=== PATIENT | male | born 1985 | race African-American/Black ===

== ENCOUNTER 2017-08-14 16:30 | Emergency (ER) | payer SELFPAY ==
[~2017-08-14] VITALS: Ht 188 cm; Wt 111.0 kg
[~2017-08-14 16:30] MED LIST: DICL50TA2 PO
[2017-08-14 16:36] VITALS: BP 148/66; PULSE 62; RESP 14; TEMP 98.1; O2SAT 100
--- NOTE | 2017-08-14 17:24 | PD ---
HPI Chief Complaint: Chest Pain Time Seen by Provider: 17:08 Travel History International Travel<30 days: No Contact w/Intl Traveler<30days: No Traveled to known affect area: No History of Present Illness HPI 31yo M with no PMH presents to the ED with c/o left sided chest pain for 3 days. Pain is nonradiating and intermittent. Associated with some sob. Denies any fever, cough, hemoptysis, diaphoresis, nausea, vomiting, abdominal pain, focal weakness or numbness. Pt was playing basketball a few days ago. Pt was here in 2011 for atypical chest pain. Pt said he has no access to his family history. Denies any cig smoking, cocaine use, drug use, leg swelling, recent surgery, DVT/PE. PFSH Past Medical History Asthma: Yes (as a child) Past Surgical History Other Surgery: Yes (lymph node removed from right neck) Social History Alcohol Use: Yes (1glass of wine daily) Tobacco Use: No Substance Use: No Allergies-Medications (Allergen,Severity, Reaction): Coded Allergies: No Known Allergies (Unverified Adverse Reaction, Unknown, 08/14/17) Reported Meds & Prescriptions Reported Meds & Active Scripts Active No Active Prescriptions or Reported Medications Review of Systems Except as stated in HPI: all other systems reviewed are Neg Physical Exam Narrative GENERAL: 31yo M not in distress. SKIN: Focused skin assessment warm/dry. HEAD: Atraumatic. Normocephalic. EYES: Pupils equal and round. No scleral icterus. No injection or drainage. ENT: No nasal bleeding or discharge. Mucous membranes pink and moist. NECK: Trachea midline. No JVD. CARDIOVASCULAR: Regular rate and rhythm. No murmur appreciated. RESPIRATORY: No accessory muscle use. Clear to auscultation. Breath sounds equal bilaterally. GASTROINTESTINAL: Abdomen soft, non-tender, nondistended. MUSCULOSKELETAL: No obvious deformities. No clubbing. No cyanosis. No edema. NEUROLOGICAL: Awake and alert. No obvious cranial nerve deficits. Motor grossly within normal limits. Normal speech. PSYCHIATRIC: Appropriate mood and affect; insight and judgment normal. Data Data Last Documented VS Vital Signs Date Time Temp Pulse Resp B/P (MAP) Pulse Ox O2 Delivery O2 Flow Rate FiO2 08/14/17 16:36 98.1 62 14 148/66 (93) 100 Orders Orders Electrocardiogram (6/25/18 17:17) Basic Metabolic Panel (Bmp) (08/14/17 17:17) Complete Blood Count With Diff (08/14/17 17:17) Prothrombin Time / Inr (Pt) (08/14/17 17:17) Act Partial Throm Time (Ptt) (08/14/17 17:17) Troponin I (08/14/17 17:17) Chest, Single Ap (08/14/17 17:17) Ketorolac Inj (Toradol Inj) (08/14/17 17:30) Labs Laboratory Tests Test 08/14/17 17:20 White Blood Count 6.5 TH/MM3 Red Blood Count 5.92 MIL/MM3 Hemoglobin 15.5 GM/DL Hematocrit 46.7 % Mean Corpuscular Volume 78.9 FL Mean Corpuscular Hemoglobin 26.3 PG Mean Corpuscular Hemoglobin Concent 33.3 % Red Cell Distribution Width 15.4 % Platelet Count 170 TH/MM3 Mean Platelet Volume 9.4 FL Neutrophils (%) (Auto) 61.5 % Lymphocytes (%) (Auto) 28.3 % Monocytes (%) (Auto) 8.4 % Eosinophils (%) (Auto) 1.4 % Basophils (%) (Auto) 0.4 % Neutrophils # (Auto) 4.0 TH/MM3 Lymphocytes # (Auto) 1.8 TH/MM3 Monocytes # (Auto) 0.5 TH/MM3 Eosinophils # (Auto) 0.1 TH/MM3 Basophils # (Auto) 0.0 TH/MM3 CBC Comment DIFF FINAL Differential Comment Prothrombin Time 10.7 SEC Prothromb Time International Ratio 1.1 RATIO Activated Partial Thromboplast Time 26.0 SEC Blood Urea Nitrogen 13 MG/DL Creatinine 1.21 MG/DL Random Glucose 92 MG/DL Calcium Level 9.0 MG/DL Sodium Level 141 MEQ/L Potassium Level 3.5 MEQ/L Chloride Level 106 MEQ/L Carbon Dioxide Level 27.2 MEQ/L Anion Gap 8 MEQ/L Estimat Glomerular Filtration Rate 86 ML/MIN Troponin I LESS THAN 0.02 NG/ML [facility] Medical Decision Making Medical Screen Exam Complete: Yes Emergency Medical Condition: Yes Interpretation(s) EKG: NSR 72bpm. Normal axi.s TWI III. No significant ST elevation or depression. Differential Diagnosis Musculoskeletal pain vs. pneumonia vs. pneumothorax vs. costochondritis vs. ACS Narrative Course 31yo M with atypical left chest pain for 3 days. Labs reviewed, no leukocytosis. H/H normal. Troponin negative. BMP unremarkable. CXR showed minimal left base parenchymal opacity and that is where his pain is. Pt is well appearing and saturating at 100% on RA so will cover with azithromycin. Do not think this is cardiac. Pt given toradol and pain has improved. Return precautions given. Diagnosis Primary Impression: Pneumonia Qualified Codes: J18.1 - Lobar pneumonia, unspecified organism Patient Instructions: General Instructions Departure Forms: Tests/Procedures Additional Instructions: Please follow up with your primary care physician in 2-3 days. Return to the ED if symptoms worsen. Med/Other Pt SpecificInfo: Prescription(s) given Scripts Azithromycin (Zithromax Z-Vicente) 250 Mg Dspk 250 MG PO DIRECTED for Infection, #1 DSPK 0 Refills 500 MG (2 tabs) day 1, then 1 tab days 2-5. Prov: Radha Musa DO 08/14/17 Disposition: 01 DISCHARGE HOME Condition: Stable Radha Musa DO Aug 14, 2017 17:24
[2017-08-14] MEDS ORDERED: KETOROLAC TROMETHAMINE 30 MG/ML (IVP) VIAL IV PUSH ONE (17:30)
[2017-08-14 17:36] LABS: BASOPHIL % 0.4 % (0.0-2.0); EOSINOPHIL # 0.1 TH/MM3 (0-0.4); EOSINOPHIL % 1.4 % (0.0-4.0); HEMATOCRIT 46.7 % (39.0-51.0); HEMOGLOBIN 15.5 GM/DL (13.0-17.0); LYMPH % 28.3 % (9.0-44.0); LYMPHOCYTE # 1.8 TH/MM3 (1.0-4.8); MEAN CELL VOLUME 78.9 FL (80.0-100.0); MEAN CORPUSCULAR HEMOGLOBIN 26.3 PG (27.0-34.0); MEAN CORPUSCULAR HGB CONC 33.3 % (32.0-36.0); MEAN PLATELET VOLUME 9.4 FL (7.0-11.0); MONO % 8.4 % (0.0-8.0); MONOCYTE # 0.5 TH/MM3 (0-0.9); NEUT % 61.5 % (16.0-70.0); PLATELET COUNT 170 TH/MM3 (150-450); RED BLOOD COUNT 5.92 MIL/MM3 (4.50-5.90); RED CELL DISTRIBUTION WIDTH 15.4 % (11.6-17.2); WHITE BLOOD COUNT 6.5 TH/MM3 (4.0-11.0)
[2017-08-14 17:47] LABS: INTERNATIONAL NORMALIZED RATIO 1.1 RATIO; PROTHROMBIN TIME - PATIENT 10.7 SEC (9.8-11.6)
--- NOTE | 2017-08-14 17:50 | RADRPT ---
EXAM DATE: 08/14/2017 5:44 PM EDT AGE/SEX: 31 years / Male INDICATIONS: Left sided chest pain. CLINICAL DATA: This is the patient's initial encounter. Patient reports that signs and symptoms have been present for 3 days and indicates a pain score of 7/10. MEDICAL/SURGICAL HISTORY: None. None. COMPARISON: [facility] – [place], 07/23/2011. . FINDINGS: There is slight streaky parenchymal opacity at the left lung base which may be minimal infiltrate. Th ere is no evidence of effusion. Cardiac contours are satisfactory and stable. Thoracic skeleton appea rs intact. CONCLUSION: Minimal left base parenchymal opacity. Electronically signed by: Kristofer Hunt MD 08/14/2017 5:48 PM EDT
[2017-08-14 17:56] LABS: BICARBONATE 27.2 MEQ/L (21.0-32.0); BLOOD UREA NITROGEN 13 MG/DL (7-18); CHLORIDE 106 MEQ/L (98-107); CREATININE 1.21 MG/DL (0.60-1.30); GLOMERULAR FILTRATION RATE 86 ML/MIN (>89); GLUCOSE,RANDOM 92 MG/DL (74-106); SODIUM (NA) 141 MEQ/L (136-145)
[2017-08-14 18:00] LABS: TROPONIN I LESS THAN 0.02 NG/ML (0.02-0.05)
[2017-08-14] MEDS ORDERED: ZITHTAB PO (18:58)
--- NOTE | 2017-08-14 19:29 | EKG ---
Date Performed: 08/14/2017 Time Performed: 17:15:20 PTAGE: 31 years EKG: Sinus rhythm WITH MARKED SINUS ARRHYTHMIA NONSPECIFIC ST & T-WAVE ABNORMALITY No significant change from prior el ectrocardiogram. NO PREVIOUS TRACING DOCTOR: Jayant Riojas Interpretating Date/Time 08/14/2017 19:28:02
== END 2017-08-14 19:14 | disposition home or self-care (01) ==
LOC: NEPD 16:30
DX: J18.1 Lobar pneumonia, unspecified organism (principal); R07.89 Other chest pain
CPT/HCPCS: 71045; 80048; 84484; 85025; 85610; 85730; 93005; 96372; 99285; J1885